=== PATIENT | female | born 1960 ===

== ENCOUNTER 2025-02-14 05:18 | Day surgery (SDC) | payer OTHER ==
[~2025-02-14 05:18] MED LIST: ALPRAZOLAM XR1 MG PO; FLECAINIDE ACE100 MG PO; LIPITOR40 M1 PO; MAXIMUM D3325 MCG PO; PAXIL20 MG PO; RESTORIL30 M1 PO; SYNTHROID50 MCG PO; TOPROL XL25 M1 PO
[2025-02-14] MEDS ORDERED: CEFAZOLIN SODIUM 1,000 MG VIAL ONE (09:56)
[2025-02-14] MEDS ORDERED: GENTAMICIN SULFATE 40 MG/ML VIAL ONE (09:59)
[2025-02-14] MEDS ORDERED: EPINEPHRINE HCL/PF 1 MG/ML AMPUL ONE (09:59)
[2025-02-14] MEDS ORDERED: LIDOCAINE HCL 1%/EPINEPHRINE 20ML VIAL IJ ONE ×3 (10:00→10:26)
[2025-02-14] MEDS ORDERED: CHLORHEXIDINE GLUCONATE 120 ML BOTTLE TOP ONE (10:00)
[2025-02-14] MEDS ORDERED: MACROBID 100 M100 MG PO (11:12)
[2025-02-14] MEDS ORDERED: TRAM1TAB98 PO (11:12)
== END 2025-02-14 14:10 | disposition home or self-care (01) ==
LOC: CIR.AMB 05:18
PROVIDERS: ATTEND Obstetrics & Gynecology Gynecology
DX: N81.11 Cystocele, midline (principal); N81.5 Vaginal enterocele